=== PATIENT | female | born 1930 | race Caucasian/White ===

== ENCOUNTER 2016-09-08 13:14 | Outpatient (CLI) | payer MEDICARE, OTHER | END 2016-09-08 13:15 | disposition home or self-care (01) | DX: Z12.31 Encounter for screening mammogram for malignant neoplasm of breast (principal); Z85.3 Personal history of malignant neoplasm of breast; Z90.11 Acquired absence of right breast and nipple; Z80.3 Family history of malignant neoplasm of breast ==

== ENCOUNTER 2017-02-24 11:00 | Outpatient (CLI) | payer MEDICARE, OTHER | END 2017-02-24 11:01 | disposition home or self-care (01) | LOC: LAB.R 11:00 | PROVIDERS: ATTEND Family Medicine | DX: N39.0 Urinary tract infection, site not specified (principal) | CPT/HCPCS: 87086 ==

== ENCOUNTER 2018-03-13 09:41 | Outpatient (CLI) | payer MEDICARE, OTHER ==
--- NOTE | 2018-03-14 15:28 | DEXA Report ---
Procedure Date: 03/13/2018 Accession Number: [id number] / [id number] Procedure: DEX - Dexa Forearm CPT Code: FULL RESULT: EXAM: Dexa Spine and/or Hip, Dexa Forearm DATE: 03/13/2018 11:45 AM CLINICAL HISTORY: OSTEOPOROSIS NOS TECHNIQUE: Dual energy x-ray absorptiometry (DXA) was performed on a [employer] System. Regions measured are the AP Spine, femoral neck, and if needed forearm. COMPARISON: None. In accordance with the International Society for Clinical Densitometry (ISCD) guidelines, data from previous exams may be reanalyzed using current recommendations and techniques. This is done to allow a more accurate basis for comparison with the current study. FINDINGS: The data for the lumbar spine is as follows: BMD (g/cm/cm) T-SCORE Z-SCORE REGION L1 0.868 -2.2 -0.7 L2 1.113 -0.7 0.8 L3 1.143 -0.5 1.1 L4 1.122 -0.7 0.9 TOTAL 1.069 -0.9 0.6 NOTE: All evaluable vertebrae are used for classification The data for the hip is as follows: BMD (g/cm/cm) T-SCORE Z-SCORE REGION Neck 0.734 -2.2 0.0 TOTAL 0.728 -2.2 -0.2 NOTE: The femoral neck or total proximal femur, whichever is lowest, is used for classification. The data for the left forearm is as follows: BMD (g/cm/cm) T-SCORE Z-SCORE REGION 1/3 0.591 -3.3 0.0 NOTE: The 33% radius of the nondominant forearm is used for classification. DXA RESULTS SUMMARY: Spine SCAN DATE AGE BMD CHANGE VS CHANGE VS PREVIOUS PREVIOUS % 03[birth year]13/2018 [age] 1.069 0.075* 7.5* 02[birth year]13/2016 [age] 0.994 * Denotes significant change at the 95% confidence level. Denotes dissimilar scan types or analysis methods. DXA RESULTS SUMMARY: Hip SCAN DATE AGE BMD CHANGE VS CHANGE VS PREVIOUS PREVIOUS % [birth year]13/2018 [age] 0.728 0.032 4.6 02/13/2016 85.5 0.696 * Denotes significant change at the 95% confidence level. Denotes dissimilar scan types or analysis methods. DXA RESULTS SUMMARY: Forearm SCAN DATE AGE BMD CHANGE VS CHANGE VS PREVIOUS PREVIOUS % 03/13/2018 87.5 0.591 0.011 1.9 02/13/2016 85.5 0.580 * Denotes significant change at the 95% confidence level. Denotes dissimilar scan types or analysis methods. IMPRESSION: THE WHO CLASSIFICATION BASED ON THE INTERNATIONAL REFERENCE STANDARD IS OSTEOPOROSIS. THE FRACTURE RISK IS HIGH. There is mild improvement in the relative osteoporosis of the spine. Osteoporosis in the hip and wrist is overall similar to before. RECOMMENDATION: Patients with diagnosis of osteoporosis or osteopenia should have regular bone mineral density assessment. For those eligible for Medicare, routine testing is allowed once every 2 years. Testing frequency can be increased for patients who have rapidly progressing disease or for those who are receiving medical therapy to restore bone mass. COMMENT: World Health Organization (WHO) definitions for osteoporosis and osteopenia: NORMAL BMD: T-score at -1.0 or higher, fracture risk is low OSTEOPENIA BMD: T-score between -1.0 and -2.5, fracture risk is increased. OSTEOPOROSIS BMD: T-score at -2.5 or lower, fracture risk is high. National Osteoporosis Foundation recommends: 1. Obtain adequate dietary calcium (at least 1200 mg per day) and vitamin D (400-800 international units per day). 2. Participate, as appropriate, in regular weightbearing and muscle-strengthening exercise. 3. Avoid tobacco use and reduce alcohol and caffeine intake. 4. For more detailed information see the website at www.NOF.org.
== END 2018-03-13 09:42 | disposition home or self-care (01) ==
LOC: DI 09:41
PROVIDERS: ATTEND Physician Assistant
DX: M81.0 Age-related osteoporosis without current pathological fracture (principal)
CPT/HCPCS: 77080; 77081

== ENCOUNTER 2019-01-21 11:13 | Emergency (ER) | payer MEDICARE, OTHER ==
[2019-01-21 11:21] VITALS: BP 124/105
[2019-01-21 11:36] LABS: BILIRUBIN,URINE NEGATIVE (NEGATIVE); GLUCOSE, URINE (UA) NEGATIVE (NEGATIVE); KETONES,URINE (UA) NEGATIVE (NEGATIVE); LEUKOCYTE ESTERASE, URINE SMALL (NEGATIVE); NITRITE,URINE NEGATIVE (NEGATIVE); OCCULT BLOOD,URINE TRACE-LYSE (NEGATIVE); PH,URINE 6.5 PH (5.0-7.5); PROTEIN,URINE NEGATIVE (NEGATIVE); UROBILINOGEN,URINE 0.2 (NORMAL) E.U./dL (NORMAL)
[2019-01-21 11:38] LABS: CLARITY,URINE CLEAR (CLEAR)
[2019-01-21 11:42] LABS: BACTERIA,URINE Few /HPF (None Seen); RBC,URINE 0-5 /HPF (0-5); SQUAMOUS EPITHELIAL CELL,UR NONE SEEN (<= Few)
[2019-01-21] MEDS ORDERED: cephALEXin 250 MG CAPSULE PO STA (11:47)
--- NOTE | 2019-01-21 11:48 | ED Physician Documentation ---
PD HPI FEMALE - Stated complaint Stated Complaint: FEMALE - Chief complaint Chief Complaint: UTI - History obtained from History obtained from: Patient - History of Present Illness Timing - onset: How many days ago (4-5) Timing - duration: Days Timing - details: Gradual onset Pain level max: 5 Pain level max: 4 Associated symptoms: Dysuria, Urinary frequency. No: Fever, Chest/shoulder pain, Abdominal pain, Back pain, Pelvic pain Similar symptoms before: Diagnosis (UTI) Recently seen: Not recently seen Review of Systems Constitutional: denies: Fever, Chills Respiratory: denies: Cough GI: denies: Vomiting, Diarrhea Skin: denies: Rash Musculoskeletal: denies: Neck pain, Back pain Neurologic: denies: Headache PD PAST MEDICAL HISTORY - Past Medical History Past Medical History: Yes Cardiovascular: Hypertension Respiratory: None Endocrine/Autoimmune: HyPOthyroidism GI: None : None HEENT: None Psych: None Musculoskeletal: Osteoporosis Derm: None - Past Surgical History Past Surgical History: Yes General: Appendectomy, Colonoscopy /EMBLE[employer] TENDER: Hysterectomy - Present Medications Home Medications: Ambulatory Orders Medication Instructions Recorded Confirmed Levothyroxine [Synthroid] 75 mcg PO QDAC 02/07/13 06/26/18 Multivits-Min/FA/Lycopene/Lut 1 each PO DAILY 02/07/13 06/26/18 [Centrum Silver Tablet] Irbesartan [Avapro] 300 mg PO DAILY 04/29/16 06/26/18 Valacyclovir HCl [Valacyclovir] 500 mg PO DAILY PRN 04/29/16 06/26/18 Cephalexin [Keflex] 500 mg PO Q6H #20 capsule 01/21/19 Phenazopyridine HCl [Pyridium] 200 mg PO TID PRN #6 tablet 01/21/19 - Allergies Allergies/Adverse Reactions: Allergies Allergy/AdvReac Type Severity Reaction Status Date / Time No Known Drug Allergies Allergy Verified 02/07/13 13:16 - Social History Does the pt smoke?: No Smoking Status: Never smoker Does the pt drink ETOH?: No - Immunizations Immunizations are current?: Yes - POLST Patient has POLST: No PD ED PE NORMAL - Vitals Vital signs reviewed: Yes - General General: Alert and oriented X 3, No acute distress, Well developed/nourished - HEENT HEENT: Moist mucous membranes - Neck Neck: Supple, no meningeal sign - Cardiac Cardiac: RRR, Strong equal pulses - Respiratory Respiratory: No respiratory distress, Clear bilaterally - Abdomen Abdomen: Soft, Non tender, Non distended - Back Back: No CVA TTP - Derm Derm: Warm and dry - Neuro Neuro: Alert and oriented X 3 - Psych Psych: Normal mood, Normal affect Results - Vitals Vitals: Vital Signs - 24 hr 01/21/19 11:18 Temperature 36.0 C L Heart Rate 73 Respiratory 16 Rate Blood Pressure 124/105 H O2 Saturation 97 Oxygen O2 Source Room air - Labs Labs: Laboratory Tests 01/21/19 11:23 Urine Color YELLOW Urine Clarity CLEAR Urine pH 6.5 Ur Specific [place] <=1.005 Urine Protein NEGATIVE Urine Glucose (UA) NEGATIVE Urine Ketones NEGATIVE Urine Occult Blood TRACE-LYSE Urine Nitrite NEGATIVE Urine Bilirubin NEGATIVE Urine Urobilinogen 0.2 (NORMAL) Ur Leukocyte Esterase SMALL H Urine RBC 0-5 Urine WBC 11-25 H Ur Squamous Epith Cells NONE SEEN Urine Bacteria Few Ur Microscopic Review INDICATED Urine Culture Comments INDICATED PD MEDICAL DECISION MAKING - ED course Complexity details: reviewed results, considered differential, d/w patient ED course: Patient with a UTI. No evidence of urosepsis or pyelonephritis. Will prescribe antibiotics and follow-up with her doctor. Patient counseled regarding signs and symptoms for which I believe and urgent re-evaluation would be necessary. Patient with good understanding of and agreement to plan and is comfortable going home at this time This document was made in part using voice recognition software. While efforts are made to proofread this document, sound alike and grammatical errors may occur. Departure - Departure Disposition: 01 Home, Self Care Clinical Impression: Urinary tract infection Qualifiers: Urinary tract infection type: acute cystitis Hematuria presence: without hematuria Qualified Code(s): N30.00 - Acute cystitis without hematuria Condition: Good Instructions: ED UTI Cystitis Female Follow-Up: Lashay Winkler PA [Primary Care Provider] - As Needed Prescriptions: Cephalexin [Keflex] 500 mg PO Q6H #20 capsule Phenazopyridine HCl [Pyridium] 200 mg PO TID PRN #6 tablet PRN Reason: dysuria Comments: Take all antibiotics until gone. Return if you worsen. Discharge Date/Time: 01/21/19 11:56
== END 2019-01-21 11:56 | disposition home or self-care (01) ==
LOC: ED 11:13
DX: N30.00 Acute cystitis without hematuria (principal); I10 Essential (primary) hypertension
CPT/HCPCS: 81001; 87086; 87181; 99283; A9270; 81003

== ENCOUNTER 2019-02-13 13:03 | Outpatient (CLI) | payer MEDICARE, OTHER | END 2019-02-13 13:04 | disposition home or self-care (01) | LOC: LAB.WCP 13:03 | PROVIDERS: ATTEND Physician Assistant | DX: E83.52 Hypercalcemia (principal); E03.9 Hypothyroidism, unspecified | CPT/HCPCS: 36415; 84439; 84481 ==

== ENCOUNTER 2019-05-28 09:22 | Outpatient (CLI) | payer MEDICARE, OTHER | END 2019-05-28 23:59 | disposition home or self-care (01) | LOC: LAB.WCP 09:22 | PROVIDERS: ATTEND Physician Assistant Medical | DX: E83.52 Hypercalcemia (principal) | CPT/HCPCS: 36415 ==

== ENCOUNTER 2019-06-07 09:13 | Outpatient (CLI) | payer MEDICARE, OTHER ==
--- NOTE | 2019-06-07 12:18 | MRI Report ---
Reason: RT KNEE PAIN, GAIT INSTABILITY Procedure Date: 06/07/2019 Accession Number: [id number] / [id number] Procedure: MRI - Knee RT W/O CPT Code: FULL RESULT: EXAM: RIGHT KNEE MRI WITHOUT CONTRAST EXAM DATE: 06/07/2019 09:31 AM. CLINICAL HISTORY: Right knee pain, gait instability. COMPARISON: None. TECHNIQUE: Multiplanar, multisequence T1-weighted and fluid-sensitive sequences of the knee without contrast. Other: None. FINDINGS: Cruciate Ligaments: The anterior and posterior cruciate ligaments appear intact. Medial Meniscus: Partial thickness radial tear at the body/posterior horn junction. Otherwise intact. Lateral Meniscus: Partial-thickness oblique radial tear at the mid body. Otherwise intact. Collateral Ligaments: The medial and fibular collateral ligaments appear intact. Bones and Articular Surfaces: Moderate cartilage thinning of irregularity and fissuring in the patellofemoral compartment. Subchondral edema and subchondral cyst formation at the lateral trochlea. Mild cartilage thinning and irregularity in the medial and lateral compartments. Subchondral edema at the periphery of the medial compartment. Small tricompartmental marginal osteophytes. Small joint effusion. Extensor Mechanism: The patellar tendon and quadriceps insertion appear intact. IMPRESSION: 1. Moderate patellofemoral osteoarthritis. 2. Mild medial and lateral compartment osteoarthritis. 3. Tiny partial thickness radial tear at the body/posterior horn junction of the medial meniscus. 4. Tiny partial thickness radial tear at the mid body of the lateral meniscus. 5. Small joint effusion. RADIA
== END 2019-06-07 09:14 | disposition home or self-care (01) ==
LOC: DI 09:13
PROVIDERS: ATTEND Physician Assistant Medical
DX: M17.11 Unilateral primary osteoarthritis, right knee (principal); S83.241A Other tear of medial meniscus, current injury, right knee, initial encounter; S83.281A Other tear of lateral meniscus, current injury, right knee, initial encounter; M25.461 Effusion, right knee

== ENCOUNTER 2019-07-17 08:36 | Outpatient (CLI) | payer MEDICARE, OTHER | END 2019-07-17 08:37 | disposition home or self-care (01) | LOC: DI 08:36 | PROVIDERS: ATTEND Physician Assistant | DX: I11.9 Hypertensive heart disease without heart failure (principal) | CPT/HCPCS: 93306 ==

== ENCOUNTER 2019-11-29 16:16 | Outpatient (CLI) | payer MEDICARE, OTHER | END 2019-11-29 16:17 | disposition home or self-care (01) | LOC: COV 16:16 | PROVIDERS: ATTEND Family Medicine | DX: R05 Cough (principal); R50.9 Fever, unspecified | CPT/HCPCS: 81599 ==

== ENCOUNTER 2020-11-12 10:35 | Outpatient (CLI) | payer MEDICARE, OTHER ==
--- NOTE | 2020-11-12 13:27 | DEXA Report ---
PROCEDURE: Dexa Spine and/or Hip INDICATIONS: OSTEOPOROSIS TECHNIQUE: Dual energy x-ray absorptiometry (DXA) was performed on a [employer] System. Regions measur ed are the AP Spine, femoral neck, and if needed forearm. COMPARISON: Dexa, 03/13/2021.. FINDINGS: Lumbar Spine: Bone Mineral Density 1.070 g/cm/cm,T score -2.3. Left Hip: Bone Mineral Density 0.777 g/cm/cm,T score -1.8. Left Femoral Neck: Bone Mineral Density 0.788 g/cm/cm, T score -1.8. Left forearm: Bone Mineral Density 0.669 g/cm/cm, T score -2.4. (T score greater or equal to -1.0: NORMAL) (T score from -1.1 to -2.4: OSTEOPENIA) (T score less than or equal to -2.5 to: OSTEOPOROSIS) Impression: Based on WHO criteria, the patient is osteopenic. Compared to last exam dated 03/12/2018, there is statistically significant increase in the patient's bone mineral density in left forearm and left hip. Patients with diagnosis of osteoporosis or osteopenia should have regular bone mineral density assess ment. For those eligible for Medicare, routine testing is allowed once every 2 years. Testing frequ ency can be increased for patients who have rapidly progressing disease or for those who are receivin g medical therapy to restore bone mass. Reviewed by: Demetra Martínez MD on 11/12/2020 1:25 PM PDT Approved by: Demetra Martínez MD on 11/12/2020 1:25 PM PDT Station ID: [id number]
== END 2020-11-12 10:36 | disposition home or self-care (01) ==
LOC: DI 10:35
PROVIDERS: ATTEND Nurse Practitioner Family
DX: M85.89 Other specified disorders of bone density and structure, multiple sites (principal)

== ENCOUNTER 2021-04-23 08:09 | Day surgery (SDC) | payer MEDICARE, OTHER ==
[~2021-04-23 08:09] MED LIST: BRIMONIDINE 0.2% OPHTH DROPS 5 ML ONE; BSS/LIDOCAINE/EPINEPHRINE 1 ML SYRINGE ONE; CYCLOPENTOLATE 1% OPHTH DROPS 2 ML ONE; EPINEPHrine 1 MG/ML AMP ONE; KETOROLAC 0.45% OPHTH DROPS ONE; PROPARACAINE 0.5% OPHTH DROPS 15 ML ONE; TIMOLOL 0.5% OPHTH DROPS ONE; TRIAMCIN/MOXIFLOX OPHTHALMIC 0.6 ML VIAL IO ONE; VANCOMYCIN OPHTHALMI 8MG/0.8ML 8 MG/0.8 ML SYRINGE IO ONE
[2021-04-23] MEDS ORDERED: LACTATED RINGERS 1,000 ML IV ONE ×2 (09:03→09:52)
[2021-04-23] MEDS ORDERED: fentaNYL 100 MCG/2 ML VIAL ONE (09:09)
[2021-04-23] MEDS ORDERED: MIDAZOLAM 2 MG/2 ML VIAL ONE (09:09)
[2021-04-23] MEDS ORDERED: TRIAMCIN/MOXIFLOX OPHTHALMIC 0.6 ML VIAL IO ONE ×2 (09:20→09:42)
[2021-04-23] MEDS ORDERED: PROPARACAINE 0.5% OPHTH DROPS 15 ML EACHEYE ONE ×2 (09:20→09:42)
[2021-04-23] MEDS ORDERED: VANCOMYCIN OPHTHALMI 8MG/0.8ML 8 MG/0.8 ML SYRINGE IO ONE ×2 (09:20→09:42)
[2021-04-23] MEDS ORDERED: BSS/LIDOCAINE/EPINEPHRINE 1 ML SYRINGE IO ONE ×2 (09:20→09:42)
[2021-04-23] MEDS ORDERED: EPINEPHrine 1 MG/ML AMP IR ONE ×2 (09:20→09:42)
[2021-04-23] MEDS ORDERED: TIMOLOL 0.5% OPHTH DROPS OPTH ONE ×2 (09:20→09:42)
[2021-04-23] MEDS ORDERED: BRIMONIDINE 0.2% OPHTH DROPS 5 ML OPTH ONE ×2 (09:20→09:42)
[2021-04-23] MEDS ORDERED: CHONDR SULF/HYALURONATE SYRINGE IO ONE ×2 (09:20→09:42)
--- NOTE | 2021-04-23 09:23 | ANESTHESIA ---
Pre-Anesthesia VS, & Labs - Diagnosis L senile combined cataract - Procedure L extraction cataract w/IOL Height: 5 ft 2 in Weight (kg): 71.3 kg Body Mass Index: 28.7 BMI Classification: Overweight - Is Patient ?: No - Lab Results Lab results reviewed: Yes Home Medications and Allergies Home Medications: Ambulatory Orders Aspirin [[place]az[place]] 81 mg PO DAILY 04/22/21 Levothyroxine [Synthroid] 75 mcg PO QDAC 02/07/13 Multivits-Min/FA/Lycopene/Lut [Centrum Silver Tablet] 1 each PO DAILY 02/07/13 hydroCHLOROthiazide [Hydrochlorothiazide] 12.5 mg PO DAILY 05/10/19 Aspirin [Vazalore] 81 mg PO DAILY 04/22/21 Allergies/Adverse Reactions: Allergies Allergy/AdvReac Type Severity Reaction Status Date / Time No Known Drug Allergies Allergy Verified 02/07/13 13:16 Anes History & Medical History - Anesthetic History Anesthesia Complications: reports: No previous complications Family history of Anesthesia Complications: Denies Family history of Malignant Hyperthermia: Denies - Medical History Cardiovascular: reports: Hypertension Pulmonary: reports: None Gastrointestinal: reports: None Urinary: reports: None Musculoskeletal: reports: Osteoarthritis Endocrine/Autoimmune: reports: HyPOthyroidism Skin: reports: None Smoking Status: Never smoker - Surgical History General: reports: Colonoscopy Eyes Ears Nose Throat (EENT): reports: Cataracts, Other Gynecologic: reports: Hysterectomy, Mastectomy Exam General: Alert, Oriented x3, Cooperative Dental: WNL Mouth Openin Fingerbreadth Neck Mobility: Normal Mallampati classification: II Respiratory: Lungs clear, Normal breath sounds Cardiovascular: Regular rate (slight systolic murmur) Neurological: Normal speech Mental/Cognitive Status: Alert/Oriented X3, Normal for patient Cognitive Status: Within normal limits Plan Anesthesia Type: MAC Consent for Procedure(s) Verified and Reviewed: Yes Code Status: Attempt Resuscitation ASA classification: 2-Mild systemic disease Is this case an emergency?: No
--- NOTE | 2021-04-23 09:55 | OPERATIVE REPORT ---
Operative Report - Other Other Information/Narrative: Date of Surgery: 04/23/21 Preop Dx: Visually significant cataract left eye. Cataract surgery was performed in the right eye on . Postop Dx: Same Procedure: Phacoemulsification with posterior chamber intraocular lens implant left eye Surgeon: Dr. Gallo Montoya Anesthesia: Monitored anesthesia care Complications: None Operative Indications: This is a 89-year-old F with progressive vision loss in the left eye due to 2+ nuclear sclerotic, 3+ cortical, and vacuolar cataract. Best corrected visual acuity was 20/25 with glare to 20/300 vision in the left eye. Indications for surgery were: - Overall decrease in vision - Difficulty seeing words on a computer screen - Difficulty reading - Difficulty seeing words, closed captions, or game scores on TV - Difficulty seeing street signs The patient was consented at length concerning the risks and benefits of cataract surgery after which the patient expressed a desire to proceed with s urgery. Operative Procedure: The patient was taken into OR#3 and placed under monitored anesthesia care. A surgical time-out was conducted confirming correct patient, correct procedure, and correct surgical site. The patient was given topical anesthesia and then prepped and draped in the usual sterile fashion. The eye was entered at the 6 and 3 oclock positions. Intracameral Shugarcaine was injected into the anterior chamber followed by a dispersive viscoelastic. A continuous-tear curvilinear capsulorhexis was performed. The nucleus was hydrodissected and phacoemulsified. The cortex was evacuated using automated infusion and aspiration. A cohesive viscoelastic was injected into the capsular bag and a 21.5 diopter intraocular lens was inserted into the bag. Infusion and aspiration were used to evacuate the viscoelastic materials from the eye. The wounds were hydrated and the eye inflated to physiologic pressure using balanced salt solution. Approximately 0.25ml of a mixture of triamcinolone and moxifloxacin was injected trans-sclerally into the vitreous in the inferotemporal quadrant using a 30 gauge cannula. An additional 0.55ml of a mixture of triamcinolone, moxifloxacin, and vancomycin was injected subconjunctivally in the superior quadrant for infection and inflammation prophylaxis. Wound integrity was checked with Weck-Peyton sponges. The patient was taken from the operating room in good condition and given post-op instructions.
[2021-04-23] MEDS ORDERED: ACETAMINOPHEN 500 MG TABLET PO ONE (09:56)
[2021-04-23 10:22] VITALS: BP 125/82
--- NOTE | 2021-04-23 14:33 | ANESTHESIA POST OP EVALUATION ---
Anesthesia Post Eval - Post Anesthesia Eval Vitals: Last Vital Signs Temp 36.5 C 04/23/21 10:20 Pulse 73 04/23/21 10:20 Resp 18 04/23/21 10:20 BP 125/82 H 04/23/21 10:20 Pulse Ox 97 04/23/21 10:20 CV Function Including HR & BP: Stable Pain Control: Satisfactory Nausea & Vomiting: Negative Mental Status: Baseline Respiratory Status: Airway Patent Hydration Status: Satisfactory Anesthesia Complications: None
== END 2021-04-23 08:10 | disposition home or self-care (01) ==
LOC: SDS 08:09
PROVIDERS: ATTEND Ophthalmology
DX: H25.812 Combined forms of age-related cataract, left eye (principal); E03.9 Hypothyroidism, unspecified; Z98.41 Cataract extraction status, right eye
CPT/HCPCS: 66984; A9270; J3490; J7120; V2632

== ENCOUNTER 2021-11-12 12:36 | Outpatient (CLI) | payer MEDICARE, OTHER ==
--- NOTE | 2021-11-12 15:00 | DEXA Report ---
PROCEDURE: Dexa Spine and/or Hip INDICATIONS: OSTEOPOROSIS TECHNIQUE: Dual energy x-ray absorptiometry (DXA) was performed on a [employer] System. Regions measur ed are the AP Spine, femoral neck, and if needed forearm. Forearm was measured secondary to hyperpara thyroidism. COMPARISON: DEXA 11/12/2020 FINDINGS: Lumbar Spine: Bone Mineral Density 1.085 g/cm/cm,T score -0.8, compared to -0.9 Left Hip: Bone Mineral Density 0.709 g/cm/cm,T score -2.4, compared to -1.8 Left Femoral Neck: Bone Mineral Density 0.738 g/cm/cm, T score -2.2, compared to -1.8 Left forearm: Bone Mineral Density 0.432 g/cm/cm, T score -4.0, compared to -2.8 (T score greater or equal to -1.0: NORMAL) (T score from -1.1 to -2.4: OSTEOPENIA) (T score less than or equal to -2.5 to: OSTEOPOROSIS) Impression: Progressive bone mineral density loss in the left hip and femoral neck now severe osteopenia, borderl ine for osteoporosis in the left hip. Progressive bone loss in the left forearm now significantly inc reased osteoporosis. Patients with diagnosis of osteoporosis or osteopenia should have regular bone mineral density assess ment. For those eligible for Medicare, routine testing is allowed once every 2 years. Testing frequ ency can be increased for patients who have rapidly progressing disease or for those who are receivin g medical therapy to restore bone mass. Reviewed by: Haydee Jacob MD on 11/12/2021 2:59 PM PDT Approved by: Haydee Jacob MD on 11/12/2021 2:59 PM PDT Station ID: [id number]
== END 2021-11-12 12:37 | disposition home or self-care (01) ==
LOC: DI 12:36
PROVIDERS: ATTEND Nurse Practitioner
DX: M81.0 Age-related osteoporosis without current pathological fracture (principal); E21.3 Hyperparathyroidism, unspecified